=== PATIENT | female | born 1980 ===

== ENCOUNTER 2022-10-18 10:45 | Inpatient (IN) | payer OTHER ==
[~2022-10-18] VITALS: Ht 167.6 cm; Wt 90.7 kg
== END 2022-10-22 11:27 | disposition home or self-care (01) | DRG 741 ==
LOC: O/R 10-20 05:27 → SURG 10-20 10:45 → OB/GYN 10-20 11:58
PROVIDERS: ADMIT Obstetrics & Gynecology Gynecologic Oncology; ATTEND Obstetrics & Gynecology Gynecologic Oncology
PROC: 0UT90ZZ Resection of Uterus, Open Approach (ICD-10-PCS; principal; 2022-10-20 10:45)
DX: D39.0 Neoplasm of uncertain behavior of uterus (principal); Z20.822 Contact with and (suspected) exposure to COVID-19